=== PATIENT | male | born 1975 | race Caucasian/White ===

== ENCOUNTER 2017-11-18 14:32 | Inpatient (IN) | payer OTHER ==
[~2017-11-18] VITALS: Ht 162.6 cm; Wt 71.0 kg
[2017-11-18 14:43] VITALS: BP 122/74; PULSE 72; RESP 17; TEMP 98.2; O2SAT 99
[2017-11-18] MEDS ORDERED: MISCELLANEOUS NURSING INFORMATION XX SCH (15:30)
[2017-11-18] MEDS ORDERED: SODIUM CHLORIDE 0.9% FLUSH 10 ML FLUSH IV FLUSH PRN (15:30)
[2017-11-18] MEDS ORDERED: ENALAPRILAT 1.25 MG/ML VIAL IV PUSH PRN (15:30)
[2017-11-18] MEDS ORDERED: MORPHINE SULFATE 30 MG/30 ML PCA IV SCH (15:30)
[2017-11-18] MEDS ORDERED: ONDANSETRON HCL 4 MG/2 ML VIAL IV PUSH PRN (15:30)
[2017-11-18] MEDS ORDERED: ACETAMINOPHEN/HYDROcodone 325 MG/5 MG TAB PO PRN ×2 (15:30)
[2017-11-18] MEDS ORDERED: NALOXONE HCL 0.4 MG/ML AMP IV PUSH PRN (15:30)
[2017-11-18] MEDS ORDERED: CHLORHEXIDINE GLUCONATE 2 % 1 PACK (2 CLOTHS) TOP PRN (15:30)
[2017-11-18] MEDS ORDERED: MAGNESIUM HYDROXIDE SUSP 30 ML CUP PO PRN (15:30)
[2017-11-18] MEDS: PCA - TOTAL MG MORPHINE DELIVERED PER SHIFT SCH ×2 (16:00→22:00)
[2017-11-18] MEDS: SODIUM CHLOR 0.9% 1000 ML INJ 1,000 ML IV SCH (16:00)
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
[2017-11-18] MEDS ORDERED: LACTULOSE SYRUP 20 GM/30 ML CUP PO PRN (17:00)
[2017-11-18] MEDS: POLYETHYLENE GLYCOL 17 GM PKG PO SCH (17:00)
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
[2017-11-18 18:00] VITALS: BP 112/70; PULSE 66; RESP 20; TEMP 98.8; O2SAT 98
[2017-11-18] MEDS ORDERED: FUROSEMIDE 40 MG/4 ML VIAL IV PUSH ONE (18:15)
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
[2017-11-18] MEDS ORDERED: HYDR-3580 PO (18:24)
[2017-11-18 20:35] VITALS: BP 111/72; PULSE 78; RESP 18; TEMP 99.3; O2SAT 98
[2017-11-18] MEDS: DOCUSATE SODIUM 50 MG/SENNA 8.6 MG TAB PO SCH (20:37)
[2017-11-18] MEDS ORDERED: DOCUSATE SODIUM 100 MG CAP PO SCH (21:00)
[2017-11-18 22:30] VITALS: BP 125/77; PULSE 72; RESP 20; TEMP 98.8; O2SAT 96
[2017-11-19] MEDS: PCA - TOTAL MG MORPHINE DELIVERED PER SHIFT SCH (03:04)
[2017-11-19] MEDS: CHLORHEXIDINE GLUCONATE 2 % 1 PACK (2 CLOTHS) TOP SCH ×2 (03:04→20:41)
[2017-11-19] MEDS ORDERED: ACETAMINOPHEN 1000 MG/100 ML 100 ML IV ONE (06:24)
--- NOTE | 2017-11-19 06:48 | RADRPT ---
EXAM DATE/TIME: 11/19/2017 05:58 [place] COMPARISON: No previous studies available for comparison. INDICATIONS : Short of breath, pain posterior right ribs, evaluate pneumothorax MEDICAL HISTORY : right pneumothorax, right rib fractures, left upper arm fracture per ER doctor dictation SURGICAL HISTORY : None. ENCOUNTER: Initial ACUITY: 2 days PAIN SCORE: 10/10 LOCATION: Bilateral chest FINDINGS: A single view of the chest demonstrates the lungs to be symmetrically aerated without evidence of mas s, infiltrate or effusion. The cardiomediastinal contours are unremarkable. Right posterior sixth an d ninth rib fractures. Some overlap. No pneumothorax. CONCLUSION: 1. Right-sided rib fractures. 2. No pneumothorax. Saurabh Camacho Jr., MD on November 19, 2017 at 6:46 Board Certified Radiologist. This report was verified electronically.
[2017-11-19] MEDS ORDERED: GENTAMICIN SULFATE 80 MG/2 ML VIAL ONE (06:59)
[2017-11-19] MEDS ORDERED: VANCOMYCIN HCL 1000 MG VIAL ONE (06:59)
[2017-11-19] MEDS ORDERED: ceFAZolin 2 GM PREMIX 0 ML ONE (07:15)
[2017-11-19] MEDS: DOCUSATE SODIUM 50 MG/SENNA 8.6 MG TAB PO SCH ×2 (07:17→20:41)
[2017-11-19] MEDS: POLYETHYLENE GLYCOL 17 GM PKG PO SCH (07:17)
[2017-11-19] MEDS: SODIUM CHLOR 0.9% 1000 ML INJ 1,000 ML IV SCH (07:17)
[2017-11-19] MEDS ORDERED: BUPIVACAINE/EPINEPHRINE 0.25% 50 ML VIAL ONE (07:36)
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
[2017-11-19 07:55] LABS: AUTOMATED NEUTROPHIL # 9.1 TH/MM3 (1.8-7.7); BASOPHIL % 0.2 % (0.0-2.0); EOSINOPHIL % 0.4 % (0.0-4.0); HEMATOCRIT 38.2 % (39.0-51.0); HEMOGLOBIN 13.5 GM/DL (13.0-17.0); LYMPH % 10.5 % (9.0-44.0); LYMPHOCYTE # 1.1 TH/MM3 (1.0-4.8); MEAN CELL VOLUME 90.7 FL (80.0-100.0); MEAN CORPUSCULAR HGB CONC 35.3 % (32.0-36.0); MEAN PLATELET VOLUME 8.6 FL (7.0-11.0); MONO % 6.5 % (0.0-8.0); MONOCYTE # 0.7 TH/MM3 (0-0.9); NEUT % 82.4 % (16.0-70.0); PLATELET COUNT 204 TH/MM3 (150-450); RED BLOOD COUNT 4.21 MIL/MM3 (4.50-5.90)
[2017-11-19 08:04] LABS: BICARBONATE 27.9 MEQ/L (21.0-32.0); CALCIUM 8.3 MG/DL (8.5-10.1); CREATININE 0.91 MG/DL (0.60-1.30)
[2017-11-19] MEDS ORDERED: HYDROmorphone HCL PF 2 MG/ML VIAL ONE (08:54)
--- NOTE | 2017-11-19 09:59 | PD.OP ---
cc: Doroteo Valdovinos MD Operative Report Date of Surgery: Nov 19, 2017 Preoperative Diagnosis: Comminuted intra-articular left distal radius fracture Postoperative Diagnosis: Procedure: Open reduction internal fixation left distal radius Anesthesia: Gen. Surgeon: Doroteo Valdovinos Ranch Supervisor(s): XANDER Norris PA-C The surgical procedure was assisted by my physician training assistant. My P.A. presence was necessary throughout this case for the manipulation and positioning of the surgical extremity. My P.A. was assisting me throughout the duration of this procedure. The skill set of a physician training assistant was medically necessary to complete this procedure. During the surgical case the surgical services tech was working at the back table and the physician training assistant was directly assisting me. Operation and Findings: Implants used: ITS Plan of activity: Nonweightbearing left arm Patient was seen and evaluated preoperatively and found to have a displaced distal radius fracture. Informed consent was obtained after detailed discussion of risk and benefits including bleeding, infection, injury to arteries, nerves, and blood vessels, weakness and numbness of hand, and tendon rupture. Informed consent was obtained. Patient received IV antibiotics prior to incision. Timeout procedure was performed. Operative extremity was prepped with alcohol followed by Hibiclens and draped usual sterile fashion. A standard volar approach to the distal radius was utilized. A 3 inch incision was made over the FCR tendon. Tendon sheath was opened. Pronator quadratus was elevated up. The fracture site was now visualized. The fracture did have intra-articular extension. Traction was applied. The articular surface was reduced. The dorsal articular surface fragments were reduced first. The radial styloid fragment was reduced next. Fracture fragments were manipulated to achieve excellent reduction. K wires were used to hold provisional fixation. Fluoroscopy confirmed appropriate alignment of fracture. A variable angle distal radius plate was selected. Plate was provisionally fixed to bone with K wires. 2.7 and 2.4 cortical screws were used to compress plate to bone. Fluoroscopy confirmed appropriate alignment of fracture with well-placed hardware. Multiple 2.4 locking screws were now placed distally. Screws were predrilled and measured for appropriate length. 2 additional screws were placed into the shaft. K wires were removed. Final fluoroscopy revealed excellent of fracture with well-placed hardware. The wound was thoroughly irrigated with sterile saline. Subcutaneous tissue was closed with 3-0 Vicryl and skin was closed with 3-0 nylon. Sterile dressings were applied with Xeroform, 4 x 4, soft roll, and a well padded volar splint. Patient was awakened and transferred to recovery room in stable condition Doroteo Valdovinos MD Nov 19, 2017 09:59
[2017-11-19] MEDS ORDERED: ACETAMINOPHEN/HYDROcodone 325 MG/10 MG TAB PO PRN (10:00)
[2017-11-19] MEDS ORDERED: MORPHINE SULFATE 2 MG/ML INJ IV PUSH PRN (10:00)
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
[2017-11-19 12:00] VITALS: BP 115/73; PULSE 62; RESP 18; TEMP 97.7; O2SAT 96
[2017-11-19] MEDS ORDERED: DEXAMETHASONE SOD PHOS 4 MG/ML VIAL IV ONE (12:00)
[2017-11-19] MEDS ORDERED: ROCURONIUM INJ 50 MG/5 ML SYRINGE IV PUSH ONE (12:00)
[2017-11-19] MEDS ORDERED: LIDOCAINE HCL 1% PF 5 ML SYRINGE OTHER ONE (12:00)
[2017-11-19] MEDS ORDERED: ONDANSETRON HCL 4 MG/2 ML VIAL IV ONE (12:00)
[2017-11-19] MEDS ORDERED: ceFAZolin INJ 1,000 MG VIAL IV ONE (12:00)
[2017-11-19] MEDS ORDERED: SODIUM CHLORIDE 0.9% 20 ML VIAL IV ONE (12:00)
[2017-11-19] MEDS ORDERED: MIDAZOLAM HCL 2 MG/2 ML VIAL ONE (12:31)
[2017-11-19] MEDS ORDERED: DO NOT ADM ANY ANTICOAGULANT DRUGS PRN (13:45)
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
[2017-11-19 16:00] VITALS: BP 116/72; PULSE 78; RESP 18; TEMP 97.4; O2SAT 96
[2017-11-19 20:00] VITALS: BP 121/70; PULSE 84; RESP 20; TEMP 99; O2SAT 96
[2017-11-19] MEDS: IBUPROFEN 600 MG TAB PO PRN (20:44)
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
[2017-11-20] VITALS: BP 114/68; PULSE 91; RESP 20; TEMP 98; O2SAT 97
[2017-11-20] MEDS ORDERED: LACTATED RINGER'S 1000 ML IV PRN (01:00)
[2017-11-20 04:13] VITALS: BP 104/66; PULSE 62; RESP 18; TEMP 98; O2SAT 95
[2017-11-20 06:46] LABS: HEMATOCRIT 35.6 % (39.0-51.0); HEMOGLOBIN 12.5 GM/DL (13.0-17.0)
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
[2017-11-20 08:00] VITALS: BP 100/67; PULSE 70; RESP 15; TEMP 98.1; O2SAT 98
[2017-11-20] MEDS: DOCUSATE SODIUM 50 MG/SENNA 8.6 MG TAB PO SCH (08:15)
[2017-11-20] MEDS: POLYETHYLENE GLYCOL 17 GM PKG PO SCH (08:15)
[2017-11-20] MEDS: IBUPROFEN 600 MG TAB PO PRN (08:16)
[2017-11-20] MEDS ORDERED: BUPIVACAINE HCL PF 0.5% 30 ML VIAL ONE (09:37)
[2017-11-20] MEDS ORDERED: ceFAZolin 2 GM PREMIX 50 ML ONE (10:33)
[2017-11-20] MEDS ORDERED: ONDANSETRON HCL 4 MG/2 ML VIAL IV ONE (12:00)
[2017-11-20] MEDS ORDERED: DEXAMETHASONE SOD PHOS 4 MG/ML VIAL IV ONE (12:00)
[2017-11-20] MEDS ORDERED: PROPOFOL 200 MG/20 ML AMP IV ONE ×2 (12:00→19:23)
[2017-11-20] MEDS ORDERED: LIDOCAINE HCL 1% PF 5 ML SYRINGE OTHER ONE (12:00)
[2017-11-20] MEDS ORDERED: POVIDONE IODINE 10% OINT 30 GM TUBE ONE (12:09)
--- NOTE | 2017-11-20 12:36 | HHI.PR ---
Immediate Post Op Note Procedure Date: Nov 20, 2017 Pre Op Diagnosis: (1) Fracture of phalanx of digit of hand Post Op Diagnosis: (1) Fracture of phalanx of digit of hand Surgeon: Niru Galloway Block Feeder(s): None Procedure: ORPF distal phalanx of the left fourth finger Anesthesia: General Drains: None Tourniquet time (min at mmHg) 30 minutes at 220 mm Hg Patient to: PACU Patient Condition: Good Implant/Devices: SEE IMPLANT LOG (if applicable) Date/Time of Procedure: SEE SURGICAL CARE RECORD Niru Galloway MD Nov 20, 2017 12:36
[2017-11-20] MEDS ORDERED: DEXT 5%-NACL 0.45% 1000 ML INJ 1,000 ML IV SCH (13:00)
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
[2017-11-20] MEDS ORDERED: DO NOT ADM ANY ANTICOAGULANT DRUGS PRN (13:45)
[2017-11-20] MEDS ORDERED: CODE30TA2 PO (14:53)
[2017-11-20] MEDS ORDERED: IBUP-232 PO (14:55)
[2017-11-20] MEDS ORDERED: ACETAMINOPHEN/CODEINE 300 MG/30 MG TAB PO PRN (15:00)
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
[2017-11-20 16:00] VITALS: BP 126/83; PULSE 75; RESP 16; TEMP 97.8; O2SAT 96
== END 2017-11-20 19:24 | disposition home or self-care (01) | DRG 958 ==
LOC: NEPE 14:32 → NEDA 15:15 → HCIN 17:13 → N07A 21:58
PROVIDERS: ADMIT Surgery; ATTEND Surgery
PROC: 0PSJ04Z Reposition Left Radius with Internal Fixation Device, Open Approach (ICD-10-PCS; principal; 2017-11-19 08:36)
PROC: 0PSV04Z Reposition Left Finger Phalanx with Internal Fixation Device, Open Approach (ICD-10-PCS; 2017-11-20)
DX: S27.0XXA Traumatic pneumothorax, initial encounter (principal); S37.812A Contusion of adrenal gland, initial encounter; S22.41XA Multiple fractures of ribs, right side, initial encounter for closed fracture; S52.572A Other intraarticular fracture of lower end of left radius, initial encounter for closed fracture; S43.102A Unspecified dislocation of left acromioclavicular joint, initial encounter; S62.627A Displaced fracture of middle phalanx of left little finger, initial encounter for closed fracture; S62.635A Displaced fracture of distal phalanx of left ring finger, initial encounter for closed fracture; V29.88XA Motorcycle rider (driver) (passenger) injured in other specified transport accidents, initial encounter; Y93.89 Activity, other specified; Y92.39 Other specified sports and athletic area as the place of occurrence of the external cause
CPT/HCPCS: 71045; 73100; 76000; 80048; 85014; 85018; 85025; 87641; 94150; 99283; C1713; J0131; J0690; J1100; J1170; J1580; J2250; J2405; J3010; J3370